=== PATIENT | male | born 2000 | race Caucasian/White ===

== ENCOUNTER 2021-06-10 22:11 | Emergency (ER) | payer OTHER ==
[2021-06-10 22:23] VITALS: BP 103/63
[2021-06-10] MEDS ORDERED: oxyCODONE 5 MG TABLET PO STA (22:31)
[2021-06-10] MEDS ORDERED: ACETAMINOPHEN 325 MG TABLET PO STA (22:31)
--- NOTE | 2021-06-10 22:35 | ED Physician Documentation ---
History of Present Illness - Stated complaint Stated Complaint: R ANKLE PX - Chief complaint Chief Complaint: Trauma Ext - History obtained from History obtained from: Patient - Additonal information Additional information: 20-year-old male with history of right ankle fracture presents with right ankle injury about an hour prior to arrival when he twisted it playing football and fell to the ground. He was unable to bear weight immediately afterward and is having significant pain in the right lateral ankle associated with swelling, nonradiating, worse with range of motion. Sensory and movement intact. Review of Systems Musculoskeletal: reports: Extremity pain, Joint pain PD PAST MEDICAL HISTORY - Present Medications Home Medications: Ambulatory Orders Medication Instructions Recorded Confirmed No Known Home Medications 06/10/21 06/10/21 - Allergies Allergies/Adverse Reactions: Allergies Allergy/AdvReac Type Severity Reaction Status Date / Time No Known Drug Allergies Allergy Verified 06/10/21 22:23 PD ED PE NORMAL - Vitals Vital signs reviewed: Yes - General General: Alert and oriented X 3, No acute distress, Well developed/nourished - HEENT HEENT: Atraumatic, PERRL, EOMI - Derm Derm: Normal color, Warm and dry - Extremities Extremities: Other (Right lateral malleolus tender to palpation with significant swelling. Tender with range of motion of the right ankle. 2+ DP pulse. Normal capillary refill and sensation. Nontender to medial malleolus or foot.) Results - Vitals Vitals: Vital Signs - 24 hr 06/10/21 22:13 Temperature 36.6 C Heart Rate 119 H Respiratory 16 Rate Blood Pressure 103/63 O2 Saturation 97 Oxygen O2 Source Room air PD MEDICAL DECISION MAKING - ED course ED course: 20 y M p/w injury to R ankle. will obtain xrays, evaluate. patient already took chewable aspirin but is still in pain therefore will give percoset. Departure - Departure Disposition: 01 Home, Self Care Clinical Impression: Ankle sprain Condition: Good Instructions: ED RICE Follow-Up: Girma Ayon MD [Provider Admit Priv/Credential] - Comments: You were seen in the emergency department for right ankle injury. We see an old break in the bone on x-ray but I do not see a new break today. You will need to follow-up with orthopedics in 1 week for repeat x-rays. Please make sure that you wear your splint and crutches until that time, elevate the ankle as much as possible, apply ice for 20 minutes every hour, and take ibuprofen 600 mg every 6 hours for anti-inflammatory properties and for pain. Return to the emergency department if you have any new or worsening symptoms or other concerns.
--- NOTE | 2021-06-10 23:00 | XRAY Report ---
PROCEDURE: Ankle 3 View RT INDICATIONS: Trauma TECHNIQUE: 3 views of the ankle were acquired. COMPARISON: None. FINDINGS: Bones: Small ossifications are seen adjacent to the distal tip of the fibula that are suspicious for fracture fragments of indeterminate age. Some of them appear well-corticated. Ankle mortise is normal ly aligned. No suspicious bony lesions. Soft tissues: Prominent soft tissue edema is seen over the lateral malleolus. IMPRESSION: Prominent soft tissue edema over the lateral malleolus. Multiple small ossified fragment s are seen adjacent to the distal fibular tip that are of indeterminate age, although some of the fra gments appear to be chronic. Reviewed by: Darrell Gilliam MD on 06/10/2021 10:59 PM PDT Approved by: Darrell Gilliam MD on 06/10/2021 10:59 PM PDT Station ID: [id number]
== END 2021-06-10 23:35 | disposition home or self-care (01) ==
LOC: ED 22:11
DX: S93.401A Sprain of unspecified ligament of right ankle, initial encounter (principal); W18.30XA Fall on same level, unspecified, initial encounter; Y93.61 Activity, american tackle football
CPT/HCPCS: 29515; 73610; 99283; A9270